=== PATIENT | male | born 1950 | race Caucasian/White ===

== ENCOUNTER 2020-03-02 11:25 | Outpatient (REF) | payer OTHER, SELFPAY | END 2020-03-02 11:26 | disposition home or self-care (01) | LOC: HO.LAB 11:25 | PROVIDERS: PCP Family Medicine; Visit Provider Internal Medicine | DX: Z20.828 Contact with and (suspected) exposure to other viral communicable diseases (principal) | CPT/HCPCS: 87635 ==

== ENCOUNTER 2022-07-25 04:03 | Emergency (ER) | payer OTHER, SELFPAY ==
--- NOTE | ~2022-07-25 | XR_ITS ---
EXAMINATION: XR PELVIS CLINICAL INFORMATION: Fall, pain COMPARISON: None TECHNIQUE: AP view of the pelvis. FINDINGS: Alignment across the hips is anatomic. There is joint space narrowing of the bilateral hips, right greater than left with associated acetabular spurring and subchondral sclerosis. No acute fracture is seen. Sacroiliac joints and pubic symphysis appear intact. XR/XR pelvis 1-2V IMPRESSION: No acute findings identified. Degenerative changes of the hips, right greater than left.
--- NOTE | ~2022-07-25 | XR_ITS ---
EXAMINATION: XR CHEST CLINICAL INFORMATION: Fall COMPARISON: None TECHNIQUE: Frontal view of the chest was obtained. FINDINGS: The lungs are clear with no focal consolidation. No evidence of pneumothorax, pulmonary edema, or pleural effusions. The cardiomediastinal silhouette is unremarkable. No acute osseous findings. XR/XR chest 1V IMPRESSION: No acute cardiopulmonary findings.
[2022-07-25 04:23] VITALS: BP 170/99; PULSE 88; RESP 16; TEMP 36.8; O2SAT 97; BMI 23.6
[2022-07-25 07:16] VITALS: BP 155/81; PULSE 74; RESP 18; TEMP 36.6; O2SAT 97
[2022-07-25 07:29] VITALS: BP 163/88; PULSE 91; RESP 17; TEMP 36.2; O2SAT 95
--- NOTE | 2022-07-25 08:23 | ED.FALL ---
HPI - Fall General Chief Complaint: Fall Stated Complaint: Fall 07/22 -Back pain Time Seen by Provider: 07/25/22 07:53 Source: patient History of Present Illness HPI Narrative: Patient states he slipped on the ice 4 days ago. He hit his left flank on the edge of a stair. Since then he has been having pain. Occasionally it is spasm like. No radiation. He denies blood in the urine or dark urine. No shortness of breath. It does hurt when he takes deep breath. No anterior abdominal pain. He denied his head. No midline neck or back pain. No weakness numbness paresthesias. Related Data Previous Rx's Medication Instructions Recorded cyclobenzaprine 10 mg tablet 10 mg PO TID PRN muscle spasm #20 07/25/22 tabs ibuprofen 800 mg tablet 800 mg PO Q8H PRN pain #30 tabs 07/25/22 Allergies Allergy/AdvReac Type Severity Reaction Status Date / Time No Known Allergies Allergy Verified 07/25/22 04:23 Review of Systems Constitutional: Comments: No weakness ENT: Comments: No head pain Cardiovascular: Comments: No anterior chest pain Respiratory: Comments: No dyspnea. Positive left flank pain on deep inspiration Gastrointestinal: Comments: No anterior abdominal discomfort Musculoskeletal: Comments: No significant extremity injury Integumentary/Breasts: Comments: Bruising left flank. No lacerations or abrasion Neurologic: Comments: No focal weakness PMFSH Social History Social History Advance Directives: No Advance Directives Information Provided: Yes Physical Exam Vital Signs: Vital Signs: Last Vital Signs Temp 97.2 F 07/25/22 07:29 Pulse 91 07/25/22 07:29 Resp 17 07/25/22 07:29 BP 163/88 H 07/25/22 07:29 Pulse Ox 95 07/25/22 07:29 O2 Del Method 07/25/22 07:29 BMI result Body Mass Index 23.6 Const: Other: Awake alert. No acute distress. Ambulatory without difficulty HEENT: Other: Normocephalic atraumatic Neck: Other: Normal Chest: Other: Left lower chest, flank ecchymosis without crepitus or deformity Resp: Other: Clear and equal bilaterally Cardio: Other: [place] good regular rate and rhythm no murmurs rubs gallop GI: Other: Soft nontender nondistended. Skin: Other: Warm pink and dry. Ecchymosis as described above Neuro: Other: Nonfocal neuro exam Extrem: Other: No obvious extremity trauma Medical Decision Making Medical Decision Making MDM Narrative: Patient is 4 days post fall with left flank pain. Differential includes rib fracture, contusion. Pulmonary contusion, pneumothorax, hemothorax. Renal injury such as contusion or laceration. Given 4 days without hematuria or other significant abdominal symptoms, I do not feel we need to CT scan today. Chest x-ray shows no obvious fractures, pneumothorax, hemothorax, pulmonary contusion. Patient is stable for discharge home Discharge Plan Discharge Clinical Impression: Chest wall contusion Patient Disposition: Home, Self-Care Instructions: Rib Contusion (ED) Additional Instructions: Be sure to use the incentive spirometer as instructed. Take at least 2-3 deep breaths per hour for the next week while awake Prescriptions: New ibuprofen 800 mg tablet 800 mg PO Q8H PRN (Reason: pain) Qty: 30 0RF cyclobenzaprine 10 mg tablet 10 mg PO TID PRN (Reason: muscle spasm) Qty: 20 0RF
== END 2022-07-25 08:38 | disposition home or self-care (01) ==
PROVIDERS: Emergency Provider Emergency Medicine
DX: S20.212A Contusion of left front wall of thorax, initial encounter (principal); W00.9XXA Unspecified fall due to ice and snow, initial encounter; Y93.9 Activity, unspecified; Y92.018 Other place in single-family (private) house as the place of occurrence of the external cause; Y99.9 Unspecified external cause status
CPT/HCPCS: 71045; 72170; 94010; 99283